=== PATIENT | female | born 1940 | race Caucasian/White ===

== ENCOUNTER → 2016-10-25 | Outpatient (CLI) | payer MEDICARE, OTHER | LOC: GMAB 11:16 | PROVIDERS: ATTEND Family Medicine | DX: G50.0 Trigeminal neuralgia (principal); Z79.899 Other long term (current) drug therapy ==

== ENCOUNTER → 2016-11-09 | Outpatient (CLI) | payer MEDICARE, OTHER ==
--- NOTE | 2016-11-09 15:51 | MAM ---
EXAM DESCRIPTION: MAMMO BREAST SCREENING BILATERAL CAD, images were reviewed with CAD technology, R2 computer-aided detection. CLINICAL HISTORY: [facility]. COMPARISON: 2012. FINDINGS: Routine views are obtained. Scattered glandular pattern. No dominant mass, architectural distortion or clustered microcalcification.. IMPRESSION: Benign exam. BIRAD CATEGORY: 2 BENIGN RECOMMENDATIONS: FOLLOW-UP: Routine screening mammogram in one year. According to the [employer], yearly mammograms are recommended starting at age 40 and continuing as long as a woman is in good health. Any breast change noted on a breast self-exam should be reported promptly to the patient's healthcare provider. Breast MRI is recommended for women with an approximately 20-25% or greater lifetime risk of breast cancer, including women with a strong family history of breast or ovarian cancer and women who have been treated for Hodgkin's disease. Electronically signed by: Hui Alvarez 11/09/2016 15:49
== END ==
LOC: MAMMO 08:26
PROVIDERS: ATTEND Family Medicine
DX: Z12.31 Encounter for screening mammogram for malignant neoplasm of breast (principal)
CPT/HCPCS: 77052; G0202

== ENCOUNTER → 2017-05-12 | Outpatient (CLI) | payer MEDICARE, OTHER ==
--- NOTE | 2017-05-15 09:19 | US ---
EXAM DESCRIPTION: Renal Arteries CLINICAL HISTORY: 76 years, Female, ESSENTIAL HYPERTENSION COMPARISON: None. TECHNIQUE: Multiple real-time duplex Doppler ultrasound images were obtained of the renal arteries. FINDINGS: The aorta demonstrates a velocity of 1.7 cm/s. The proximal right renal artery is 112, mid 77, distal 84 cm/s. Renal artery peak velocity to aorta ratio is 1.4 . Left renal artery proximally is 62 cm second., 72 to midportion, 63 distal and the ratio is 0.9. Waveforms definite no evidence of tardus parvus. IMPRESSION: No ultrasound evidence of renal artery stenosis. Electronically signed by: Harjeet Penn MD 05/15/2017 9:18 AM CDT
== END | disposition home or self-care (01) ==
LOC: US 09:01
PROVIDERS: ATTEND Family Medicine
DX: I10 Essential (primary) hypertension (principal)

== ENCOUNTER → 2017-06-17 | Outpatient (CLI) | payer MEDICARE, BC | END | disposition home or self-care (01) | LOC: LAB.O 06-12 14:59 | PROVIDERS: ATTEND Internal Medicine Nephrology | DX: I10 Essential (primary) hypertension (principal) ==

== ENCOUNTER 2017-06-23 10:28 | Inpatient (IN) | payer MEDICARE, BC ==
--- NOTE | 2017-06-23 11:01 | ED.PDOC ---
History of Present Illness - General Chief Complaint: Neuro Symptoms/Deficits Stated Complaint: recent falls Time Seen by Provider: 06/23/17 10:40 Source: patient, RN notes reviewed, Vital Signs reviewed, family - & daughter, old records - Labs done 06/17/17 show hyponatremia and hypokalemia - will recheck today Exam Limitations: no limitations - History of Present Illness Initial Comments: Patient presents to the ER for evaluation of a recent fall. Patient fell 2 days ago injuring the R side of her face and head. She saw her Neurologist yesterday who ordered and MRI of her brain and C-spine. This is scheduled for Monday. Last night she had one episode of nausea with vomiting and family got concerned. She has a history of a subdural hematoma requiring surgery in the past. Her PCP sent her in to get the MRI today instead of waiting until tomorrow. Patient has no current complaints. Reports she had a thorough evaluation by her Neurologist. Patient reports fall was from a mis-step. No LOC. Timing/Duration: 24 hours Severity: moderate Improving Factors: nothing Worsening Factors: nothing Associated Symptoms: nausea/vomiting Allergies/Adverse Reactions: Allergies Penicillins Allergy (Verified 07/26/16 11:21) Home Medications: Ambulatory Orders Atenolol 100 mg PO DAILY 06/23/17 Atorvastatin Calcium [Lipitor] 20 mg PO DAILY 06/23/17 Carbamazepine [Tegretol-Xr] 300 mg PO TID 06/23/17 Clopidogrel Bisulfate [Plavix] 75 mg PO QD 06/23/17 Diltiazem HCl [Diltiazem HCl ER] 240 mg PO DAILY 06/23/17 Hydrochlorothiazide 25 mg PO DAILY 06/23/17 Nitroglycerin [Nitrostat] 1 ea SL PRN 06/23/17 Omeprazole Magnesium [Prilosec Otc] 20 mg PO DAILY 06/23/17 Valsartan [Diovan] 320 mg PO DAILY 06/23/17 diphenhydrAMINE HCL [Benadryl] 25 mg PO PRN 06/23/17 Review of Systems - Review of Systems Constitutional: States: no symptoms reported EENTM: States: no symptoms reported Respiratory: States: no symptoms reported Cardiology: States: no symptoms reported Gastrointestinal/Abdominal: States: nausea, vomiting - X1. Denies: abdominal pain Musculoskeletal: States: no symptoms reported Skin: States: change in color - Multiple bruises from fall Neurological: States: no symptoms reported All other Systems: No Change from Baseline Past Medical History (General) - Patient Medical History Hx Seizures: No Hx Stroke: Yes - TIA Hx Dementia: No Hx Asthma: No Hx of COPD: No Hx Cardiac Disorders: Yes - [place] x1 Hx Congestive Heart Failure: No Hx Pacemaker: No Hx Hypertension: Yes Hx Thyroid Disease: No Hx Diabetes: No Hx Renal Disease: No Hx Cancer: No Hx of HIV: No Hx Hepatitis C: No Hx MRSA: Yes - Head 2010 MRSA Source:: Wound - Vaccination History Hx Tetanus, Diphtheria Vaccination: Yes Hx Influenza Vaccination: Yes Hx Pneumococcal Vaccination: Yes - Social History Hx Tobacco Use: No Hx Alcohol Use: No Hx Substance Use: No Hx Substance Use Treatment: No Hx Depression: No - Female History Patient : No Family Medical History - Family History Mother Family History: No Known Physical Exam - Physical Exam General Appearance: Alert, Comfortable, No apparent distress, Well Developed, Well Groomed, Well Hydrated, Well Nourished Eye Exam: bilateral normal ENT Exam: hearing grossly normal, pharynx normal, other - Bruising around R eye Neck: non-tender, supple, normal inspection Respiratory: lungs clear, normal breath sounds, no respiratory distress, no accessory muscle use Cardiovascular/Chest: regular rate, rhythm, no edema, no gallop, no JVD, no murmur Extremities Exam: non-tender, normal range of motion 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 Borja who agreed to admission. - Results/Orders Results/Orders: Laboratory Tests 06/23/17 11:25 Sodium 119 L* Potassium 2.4 L* Chloride 82 L Carbon Dioxide 24 Anion Gap 15.4 BUN 7 Creatinine 0.53 L BUN/Creatinine Ratio 13.2 Random Glucose 128 H Serum Osmolality 238.1 L* Calcium 9.0 Total Bilirubin 0.7 AST 27 ALT 17 Alkaline Phosphatase 58 Serum Total Protein 7.0 Albumin 4.2 Globulin 2.8 Albumin/Globulin Ratio 1.5 - EKG/XRAY/CT Xray Comments: MRI: Brain - no acute findings, C-spine - DDD per Radiologist Departure - Departure Clinical Impression: Hyponatremia, Hypokalemia, Hypochloremia Accidental fall Qualifiers: Encounter type: initial encounter Qualified Code(s): W19.XXXA - Unspecified fall, initial encounter Time of Disposition: 12:22 Disposition: Admit Patient Home Medications: Ambulatory Orders Atenolol 100 mg PO DAILY 06/23/17 Atorvastatin Calcium [Lipitor] 20 mg PO DAILY 06/23/17 Carbamazepine [Tegretol-Xr] 300 mg PO TID 06/23/17 Clopidogrel Bisulfate [Plavix] 75 mg PO QD 06/23/17 Diltiazem HCl [Diltiazem HCl ER] 240 mg PO DAILY 06/23/17 Hydrochlorothiazide 25 mg PO DAILY 06/23/17 Nitroglycerin [Nitrostat] 1 ea SL PRN 06/23/17 Omeprazole Magnesium [Prilosec Otc] 20 mg PO DAILY 06/23/17 Valsartan [Diovan] 320 mg PO DAILY 06/23/17 diphenhydrAMINE HCL [Benadryl] 25 mg PO PRN 06/23/17 Decision To Admit - Decistion To Admit Decision to Admit Reason: Admit from ER Decision to Admit Date: 06/23/17 Decision to Admit Time: 12:21
--- NOTE | 2017-06-23 12:28 | HP ---
HISTORY OF PRESENT ILLNESS: This 76 year-old white female is admitted to the hospital via the Emergency Room. She has had a problem with recurring falls over the last 2 weeks on at least 3 occasions. No significant injury except she did fall and has a black eye on the right side [place] her [place]. She also fell on Monday evening before that. She feels she did not trip, she just fell having either lost her balance or her strength. She is otherwise awake and alert. No seizure disorder. No syncope. It is of note that she has had significant hypertension recently and was referred to Dr. Keller, child development director, to be seen this next Monday, which is June 28 in the clinic. He ordered some lab studies which were drawn last Monday, which was June 17 and resulted in a sodium of 125 and potassium low at 2.9. These were reexamined today with the sodium dropping to 119 and potassium to 2.4. It is of note that she is taking Hydrochlorothiazide as well as other blood pressure medications. No previous history of similar episodes of low electrolytes in the past. Her past history is positive in that she may have struck her head back in 2008 and began to notice severe headaches at which time a CT scan was performed showing a subdural hematoma. This was observed conservatively for about 3 weeks until it got worse to the point that she was losing consciousness requiring neurosurgical intervention with bilateral shunts and drainage. She has been followed by Dr. Martinez at [facility], neurologist. She last saw him yesterday, the day before her current admission. She also follows closely with Dr. Clark, her primary care physician. The patient is admitted to the hospital because of the symptomatic hyponatremia and hypokalemic states. PAST MEDICAL HISTORY: 1. Subdural hematoma in 2008 requiring neurosurgical intervention. 2. Coronary artery disease with a myocardial infarction in 1999. 3. History of hypertension with some difficulty in controlling and a recent renal artery ultrasound showing no abnormalities. 4. Thyroid enlargement with thyroid nodules being followed by a surgeon in [place], the largest nodule being 2.7 cm in size. She has had biopsies twice. PAST SURGICAL HISTORY: 1. Thyroid nodule biopsies. 2. Head janette holes for drainage of a subdural hematoma in 2008. CURRENT MEDICATIONS: Please refer to nurses' notes for a verified list of home medications. ALLERGIES: PENICILLIN. FAMILY HISTORY: Positive for coronary artery disease with her father dying of a heart attack in his 50s and Parkinsonism in the family. 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 She has never smoked. REVIEW OF SYSTEMS: A 20 pound weight loss in the last 6 months. No significant fever or chills. HEENT: She has had cataract surgeries in the past. Hearing is good. She does have a dry cough. No hemoptysis or sputum produced. CARDIOVASCULAR: No significant palpitations or chest pains recently. She has a history of a myocardial infarction in the past. ABDOMEN: Appetite is fairly good. No nausea, vomiting, diarrhea or blood in the stools. GENITOURINARY: No dysuria. NEUROLOGIC: She is having difficulty walking and has fallen 3 times in the last 2 weeks. She does not know why she falls. History of subdural hematoma requiring neurosurgical intervention currently cleared with an MRI of the brain performed earlier today and of the neck as well. PHYSICAL EXAMINATION: VITAL SIGNS: Afebrile, pulse 90, blood pressure 170/76, pulse oximetry 97% on room air. GENERAL: HEENT: Bilateral cataract removal noted. The patient is awake, alert and oriented, and communicative. NECK: Supple. No significant carotid bruits are noted. Slight enlargement of the thyroid and is currently being followed for thyroid nodules by a surgeon in [place]. CHEST: Generally clear to auscultation. Occasional dry cough. CARDIOVASCULAR: Heart tones are fairly regular. ABDOMEN: Soft with no organomegaly, masses or tenderness. Bowel tones are present. EXTREMITIES: Good muscle tone. Good range of motion. No significant pedal edema. NEUROLOGIC: The patient is awake, alert and oriented, and communicative. No focal neurological deficits are noted at this time. We are awaiting until her electrolytes are more improved before ambulating her by tomorrow with PT evaluation in progress. LABORATORY STUDIES: White count 4,300 as of about a week ago, hemoglobin 12.7 to be repeated in the morning. Chemistries show sodium dropping in the last 6 days from 125 to 119, potassium from 2.9 to 2.4, BUN is normal at 7, creatinine 0.53, glucose 128, osmolality has dropped from 251 to 238 with the patient admitting to drinking approximately 3/4 to 1 gallon of water a day. Liver enzymes are normal. Cardiac enzymes are pending. Brain MRI fails to show any significant acute infarct, hemorrhage or mass with some micro ischemic changes noted. Cervical spine shows fairly wide spread degenerative disc disease, especially prominent at C5-C6. EKG shows wide spread ST segment depression with inverted T waves with no previous EKGs available for comparison suggesting underlying ischemic coronary disease with specialized followup to continue. Will try to get an EKG from the clinic for comparison since none is in our chart. ASSESSMENT: 1. Severe symptomatic hyponatremia probably secondary to polydipsia associated with Hydrochlorothiazide administration. 2. Significant hypokalemia requiring supplementation and close followup. 3. Recurring falls with injury to the fact possibly secondary to the hyponatremic state. 4. Dystaxia probably contributed to by the hyponatremia. 5. History of a subdural hematoma requiring neurosurgical intervention in 2008. 6. History of coronary artery disease with a myocardial infarction in 1999. 7. Enlarged thyroid gland with multiple nodules, the largest being 2.7 cm being followed closely by a surgeon in [place]. 8. Chronic cervical spine degenerative disc disease especially involving C5- C6. 9. Chronic dry cough, undetermined etiology. No Kartik inhibitors at this time. 10. History of polydipsia contributing to diluted blood with free water overload. 11. Abnormal EKG suggesting underlying ischemic disease with followup necessary. PLAN: The patient is admitted to the hospital for hypertonic saline, the use of a loop diuretic, specific fluid restrictions to 1000 or less mL per day. Repeat lab. Do a chest x-ray since one has not been noted in the record as well as repeat EKG and cardiac enzymes in the morning. Close observation and supportive care necessary. Close followup with Dr. Clark upon discharge and with Dr. Keller this next Monday, and with the neurology specialist this next Monday. #[id number] [facility] CENTERJazmín
--- NOTE | 2017-06-23 12:37 | MRI ---
EXAM DESCRIPTION: Brain w/oContrast CLINICAL HISTORY: 76 years, Female, frequent falls COMPARISON: FINDINGS: Triplanar sequences. Diffusion weighted sequence does not show acute infarct. Gradient sequence does not show hemorrhage. Extensive microischemic changes in the periventricular white matter. Some mild ethmoid sinus mucosal thickening. IMPRESSION: No findings of acute infarct hemorrhage or mass. Moderate atrophy and microischemic changes. Electronically signed by: Tim Zamarripa MD 06/23/2017 12:36 PM CDT
--- NOTE | 2017-06-23 12:38 | MRI ---
Study: MRI of the Cervical Spine. Indication: frequent falls Technique: Multiplanar, multi sequence MRI of the cervical spine was obtained without intravenous contrast. Comparison: None FINDINGS: Vertebral body height maintained. Straightening cervical spine. No marrow infiltrating lesion. Spinal cord normal in caliber and signal. Mild to moderate loss disc space height and hydration throughout cervical spine and most pronounced at C6-C7. Marked enlarged thyroid gland with numerous nodules. The largest on the right measures up to 2.7 cm. C2-C3: No stenosis C3-C4: Trace retrolisthesis. 2 mm disc bulge. Mild spinal canal narrowing. Mild bilateral facet arthrosis and moderate bilateral uncovertebral hypertrophy. Moderate bilateral neural foraminal narrowing. C4-C5: 2 mm disc bulge. Mild to moderate spinal canal narrowing. Mild bilateral facet arthrosis. Moderate left and mild right uncovertebral hypertrophy. Moderate left and mild right uncovertebral hypertrophy. Moderate to severe left and mild right neural foraminal narrowing. C5-C6: Trace anterolisthesis. 3 mm disc osteophyte complex with mild to moderate spinal canal narrowing. Mild bilateral facet arthrosis. Prominent left and mild right uncovertebral hypertrophy. Severe left and mild to moderate right neural foraminal narrowing. C6-C7: 2 mm disc bulge with mild spinal canal narrowing. Mild bilateral uncovertebral hypertrophy and mild/moderate bilateral neural foraminal narrowing. C7-T1: Unremarkable. IMPRESSION: Multilevel cervical disc disease most pronounced at C5-C6 as detailed above. Enlarged heterogeneous thyroid gland with large nodules which meet criteria for workup with ultrasound evaluation. Electronically signed by: Eze Zamora MD 06/23/2017 12:36 PM CDT
[2017-06-23] MEDS ORDERED: carBAMazepine 200 MG TAB PO ONE (12:40)
[2017-06-23] MEDS ORDERED: SODIUM CHLORIDE 0.9% (FLUSH) 10 ML SYG IV PRN (14:33)
[2017-06-23] MEDS ORDERED: KCL 40MEQ/NS 1,000 ML IVS PRN (14:38)
[2017-06-23] MEDS ORDERED: MAGNESIUM HYDROXIDE 30 ML UD PO PRN (14:38)
[2017-06-23] MEDS ORDERED: HYDROcodone 5MG/APAP 325MG 1 EA TAB PO PRN (14:38)
[2017-06-23] MEDS ORDERED: SOD CHL 3% *HYPERTONIC* 500ML 300 ML IVS ONE (14:53)
[2017-06-23] MEDS ORDERED: BENZONATATE PERLES 100 MG CAP PO PRN (14:53)
[2017-06-23] MEDS: CARBAMAZEPINE 300 MG PO SCH ×2 (14:57→20:01)
[2017-06-23] MEDS ORDERED: diphenhydrAMINE HCL 25 MG CAP PO SCH (15:00)
[2017-06-23] MEDS ORDERED: CLOPIDOGREL BISULFATE 75 MG PO SCH (15:00)
[2017-06-23] MEDS ORDERED: IV SET AND CAP CHANGE INJ INJ SCH (15:00)
[2017-06-23] MEDS ORDERED: NITROGLYCERIN 0.4 MG 25 EA TAB SL SCH (15:00)
[2017-06-23] MEDS ORDERED: KCL 40 MEQ/WATER FOR INJECTION 40 MEQ in PREMIX BAG 1 BAG IVPB ONE (15:01)
[2017-06-23] MEDS: FUROSEMIDE INJ 20 MG/2 ML VIAL IV SCH (15:24)
[2017-06-23] MEDS ORDERED: KCL 40 MEQ/WATER FOR INJECTION 100 ML IVPB ONE (15:29)
[2017-06-23] MEDS ORDERED: POTASSIUM CHLORIDE 10 MEQ TAB PO SCH (15:30)
[2017-06-23] MEDS: OMEPRAZOLE CAP 20 MG CAP PO SCH (15:50)
[2017-06-23] MEDS: POTASSIUM CHLORIDE 10 MEQ TAB PO SCH ×2 (16:15→20:03)
--- NOTE | 2017-06-24 07:04 | PCM.CORE ---
Physician DVT/VTE - Nurse DVT Assessment & Total Each Risk Factor Represents 3 Points: Age over 75 years, Hx of DVT/PE, Medical PT with Hx of OR, CHF, Severe infection/sepsis DVT Assessment Score: 9 - 5 or more Very High Risk Treatments: Sequential Compression Device
[2017-06-24] MEDS ORDERED: ATENOLOL 25 MG TAB ONE (07:05)
[2017-06-24] MEDS ORDERED: CLOPIDOGREL 75 MG TAB ONE (07:06)
[2017-06-24] MEDS ORDERED: VALSARTAN 80 MG TAB ONE (07:06)
[2017-06-24] MEDS: CARBAMAZEPINE 300 MG PO SCH ×3 (07:12→18:40)
--- NOTE | 2017-06-24 07:13 | RAD ---
EXAM: Two view chest. INDICATION: Hyponatremia. COMPARISON: Chest x-ray: None. FINDINGS: Cardiac silhouette: Unremarkable. Zaina: Unremarkable. Lobar consolidation: None. Pleural effusion: None. Pneumothorax: None. Other: None. Bones: Unremarkable. Other: None. IMPRESSION: 1. No acute cardiopulmonary process. Electronically signed by: Jed Conde MD 06/24/2017 7:12 AM CDT Workstation: [id number]
[2017-06-24] MEDS: POTASSIUM CHLORIDE 10 MEQ TAB PO SCH ×3 (08:58→21:01)
[2017-06-24] MEDS: CLOPIDOGREL 75 MG TAB PO SCH (08:58)
[2017-06-24] MEDS: OMEPRAZOLE CAP 20 MG CAP PO SCH (08:58)
[2017-06-24] MEDS: ATENOLOL 25 MG TAB PO SCH (08:58)
[2017-06-24] MEDS: VALSARTAN 80 MG TAB PO SCH (08:58)
[2017-06-24] MEDS: FUROSEMIDE INJ 20 MG/2 ML VIAL IV SCH (08:58)
[2017-06-24] MEDS: SODIUM CHLORIDE 0.9% (FLUSH) 10 ML SYG IV SCH ×2 (09:51→21:01)
[2017-06-25] MEDS: CARBAMAZEPINE 300 MG PO SCH (07:06)
[2017-06-25] MEDS: ATENOLOL 25 MG TAB PO SCH (08:29)
[2017-06-25] MEDS: CLOPIDOGREL 75 MG TAB PO SCH (08:29)
[2017-06-25] MEDS: POTASSIUM CHLORIDE 10 MEQ TAB PO SCH (08:29)
[2017-06-25] MEDS: VALSARTAN 80 MG TAB PO SCH (08:29)
[2017-06-25] MEDS: SODIUM CHLORIDE 0.9% (FLUSH) 10 ML SYG IV SCH (08:33)
[2017-06-25] MEDS: OMEPRAZOLE CAP 20 MG CAP PO SCH (09:09)
[2017-06-25 10:06] VITALS: BP 129/74; TEMP 97.9; O2SAT 97
--- NOTE | 2017-06-28 16:24 | DS ---
SUPERVISING PHYSICIAN: Tello Thomas M.D. DISCHARGE DIAGNOSIS: 1. Symptomatic hyponatremia secondary to polydipsia associated with Hydrochlorothiazide administration showing improvement after IV fluids and fluid restrictions. 2. Significant hypokalemia, improving after IV therapy. 3. Recurrent multiple falls felt to be secondary to the hyponatremic state. 4. Dystaxia probably contributed to by the hyponatremia. 5. History of a subdural hematoma in the past requiring neurosurgical intervention in 2008. 6. History of coronary artery disease with a myocardial infarction in 1999. 7. Enlarged thyroid gland with multiple nodules, the largest being 2.7 cm being followed closely by a surgeon in [place]. 8. Chronic cervical disc disease especially involving C5-C6. 9. Chronic dry cough, undetermined etiology. With no Kartik inhibitors noted. 10. History of polydipsia contributing to diluted blood with free water overload. 11. Abnormal EKG suggesting underlying ischemic disease. Need close followup. HISTORY OF PRESENT ILLNESS: Ms. Bhatt is a 76 year-old female patient who is admitted to the hospital via the Emergency Room. She has had a problem with recurring falls over the last 2 weeks on at least 3 occasions. No significant injuries noted except she had a fall and has a black eye on the right side when [place] 2 [place] to her admission. She also fell on Monday evening before that. She feels that she did not trip, she just fell after she had lost her balance and no strength. She otherwise was alert and oriented. No seizure disorder. No syncope. Of note was that she had significant hypertension recently and was referred to Dr. Keller, onion topper, to be seen on the Monday after discharge, which would be June 28 in the clinic. He ordered some lab studies which had been drawn the past Monday and on June 17 resulted in a sodium of 125, potassium 2.9. Those results were reexamined on admission with sodium dropping to 119 and potassium to 2.4. It is of note that she is taking Hydrochlorothiazide as well as other blood pressure medications. No previous history of other episodes of low electrolytes in the past. Her history is positive in that she may have struck in the head back in 2008 and began to notice severe headaches at which time a CT scan was performed showing a subdural hematoma. This was observed conservatively for about 3 weeks until it got worse to the point that she was losing consciousness requiring neurosurgical intervention with bilateral shunts and drainage. She has been followed by Dr. Martinez at [facility], neurologist. She last saw him the day before her current admission. She is also followed closely by Dr. Clark. The patient was admitted to the hospital for secondary symptomatic symptoms for hyponatremia and hypokalemic states. She was admitted in stable condition. LABORATORY STUDIES: Initially on admission showed 4.9 white count with hemoglobin 11.5, hematocrit 32.0, platelet count 272,000. Differential was within normal limits. Chemistries showed sodium 119 improved after IV fluids, at discharge was 132. Potassium was low at 2.4 but normalized to 3.9. All other electrolytes were within normal limits at documentation. BUN was 7, creatinine 0.53 on admission and at discharge was 6 and less than 0.4. Calcium was 9.0 at discharge. Liver functions showed to be within normal limits. BNP was slightly elevated at 117. She had 2 troponins, one being 0.05, one being 0.03. Urinalysis showed just 100 of glucose, 40 of ketones with a trace of blood, otherwise within normal limits. No microbiology specimens were submitted. RADIOLOGY: She had a brain MRI and cervical MRI. The findings on the MRI per radiology interpretation of the brain showed no findings of acute infarct, hemorrhage or masses. Moderate atrophy and micro ischemic changes were noted. MRI of the cervical spine per radiology interpretation showed multilevel cervical disc disease most prominent at C5-C6. There was a large heterogeneous thyroid gland with large nodules which meet criteria for workup with ultrasound evaluation. Please see that final report for full details. Chest x-ray on date of admission per radiology interpretation showed no acute cardiopulmonary disease as well as she had EKG that showed normal sinus rhythm with some questionable ST changes in the inferior and anterolateral leads. No comparisons were available. The patient was without any chest pains and troponins all were within normal limits. HOSPITAL COURSE: Ms. Bhatt was admitted as noted above for replacement of sodium and fluid restrictions. She did have good clinical improvement of her electrolytes. Had no chest pains. No syncopal episodes and was able to ambulate without any difficulty. It was felt that she was clinically stable enough to be discharged to have close clinical followup in the outpatient setting. PLAN: Ms. Bhatt was discharged on 06/24/17 with instructions to have close clinical followup with Dr. Clark and Dr. Keller as scheduled. She will resume her home medications as instructed and to hold Hydrochlorothiazide until she was seen in followup. She is to restrict her total fluids in 24 hours to less than 1800 and to return to the hospital should she have any concerning symptoms. No new prescriptions were provided at discharge. The only modification was that she was told to hold her Hydrochlorothiazide. She will also need followup in regards to the thyroid findings for an ultrasound if not already seen and followed-up as noted on MRI findings of the neck. Please see those reports for full details. Diet at discharge was a normal diet as tolerated. Activity is as tolerated. Limit driving until she is seen in followup. She may return to work as tolerated. Condition on discharge was stable and improved. [facility][id number] [facility]
== END 2017-06-25 10:47 | disposition home or self-care (01) | DRG 641 ==
LOC: ER 10:28 → MS 12:26
PROVIDERS: ADMIT Emergency Medicine; ATTEND Nurse Practitioner Family
DX: E87.1 Hypo-osmolality and hyponatremia (principal); R63.1 Polydipsia; E87.6 Hypokalemia; E87.8 Other disorders of electrolyte and fluid balance, not elsewhere classified; R29.6 Repeated falls; R26.0 Ataxic gait; R94.31 Abnormal electrocardiogram [ECG] [EKG]; I10 Essential (primary) hypertension; I25.10 Atherosclerotic heart disease of native coronary artery without angina pectoris; I25.2 Old myocardial infarction; E04.2 Nontoxic multinodular goiter; M50.322 Other cervical disc degeneration at C5-C6 level; R05 Cough; T50.2X5A Adverse effect of carbonic-anhydrase inhibitors, benzothiadiazides and other diuretics, initial encounter; Y92.009 Unspecified place in unspecified non-institutional (private) residence as the place of occurrence of the external cause; Z88.0 Allergy status to penicillin; Z87.898 Personal history of other specified conditions; Z79.899 Other long term (current) drug therapy; Z86.73 Personal history of transient ischemic attack (TIA), and cerebral infarction without residual deficits

== ENCOUNTER → 2017-07-12 | Outpatient (CLI) | payer MEDICARE, BC | LOC: MRI 13:30 | PROVIDERS: ATTEND Internal Medicine Nephrology | DX: N18.4 Chronic kidney disease, stage 4 (severe) (principal); E03.9 Hypothyroidism, unspecified ==

== ENCOUNTER → 2017-11-23 | Outpatient (CLI) | payer MEDICARE, BC ==
--- NOTE | 2017-11-28 11:42 | MAM ---
EXAM DESCRIPTION: 3D Screening BILATERAL : Digital Mammography. CLINICAL HISTORY: 77 years Female SCREENING . No complaints. No family history breast cancer. Postmenopausal. No HRT. COMPARISON: 2-D digital screening bilateral studies on 11/09/2016 and 10/06/2015. Report from prior examination also reviewed. TECHNIQUE: Bilateral CC and MLO projection full-field images, 3-D tomosynthesis digital mammographic technique. Also bilateral synthesized CC/ MLO full-field images. CAD not utilized. FINDINGS: The breast parenchymal density pattern is: Scattered areas of fibroglandular density. No skin thickening or nipple retraction No focal, stellate mass or density, focal asymmetry , and no suspicious microcalcifications bilaterally. Stable mammograms compared to prior studies, taking into account differences in mammographic technique. IMPRESSION: BI-RADS CATEGORY: 1 - NEGATIVE FOLLOW UP: Routine digital bilateral screening, one year interval from November 2017. Written communication explaining the findings and follow-up, will be mailed to the patient and referring health care provider. According to the [employer], yearly mammograms are recommended starting at age 40 and continuing as long as a woman is in good health. Any breast change noted on a breast self-exam should be reported promptly to the patient's healthcare provider. Breast MRI is recommended for women with an approximately 20-25% or greater lifetime risk of breast cancer, including women with a strong family history of breast or ovarian cancer and women who have been treated for Hodgkin's disease. A negative mammographic report should not delay tissue diagnosis in patients with significant clinical history or physical findings. Extremely dense breast tissue limits the sensitivity of digital mammography. Electronically signed by: Yamil Logan MD 11/28/2017 11:42 AM [facility]
== END ==
LOC: MAMMO 08:52
PROVIDERS: ATTEND Family Medicine
DX: Z12.31 Encounter for screening mammogram for malignant neoplasm of breast (principal)

== ENCOUNTER → 2018-03-21 | Outpatient (CLI) | payer MEDICARE | LOC: GMAB 14:59 | PROVIDERS: ATTEND Family Medicine | DX: E83.2 Disorders of zinc metabolism (principal) ==

== ENCOUNTER → 2018-03-26 | Outpatient (CLI) | payer MEDICARE | LOC: GMAB 11:00 | PROVIDERS: ATTEND Family Medicine | DX: I10 Essential (primary) hypertension (principal) ==

== ENCOUNTER 2018-07-23 05:34 | Day surgery (SDC) | payer MEDICARE ==
[2018-07-23] MEDS ORDERED: TROP 1%/CYCLOPEN 1%/PHENYL 2% DROPS ONE (08:42)
[2018-07-23] MEDS ORDERED: TOBRAMYCIN SULF 0.3 % OPHT SOL 1 DROP OPHTH ONE (08:42)
[2018-07-23] MEDS: PROPARACAINE 0.5% OPHTH SOL 15 ML BTTL ONE (11:15)
== END 2018-07-23 11:25 | disposition home or self-care (01) ==
LOC: AMB 05:34
PROVIDERS: ATTEND Ophthalmology
DX: H26.491 Other secondary cataract, right eye (principal); I10 Essential (primary) hypertension; I25.10 Atherosclerotic heart disease of native coronary artery without angina pectoris; Z88.0 Allergy status to penicillin

== ENCOUNTER → 2018-12-04 | Outpatient (CLI) | payer MEDICARE | LOC: GMAE 14:23 | PROVIDERS: ATTEND Family Medicine | DX: R41.9 Unspecified symptoms and signs involving cognitive functions and awareness (principal); R42 Dizziness and giddiness ==

== ENCOUNTER → 2019-01-04 | Outpatient (CLI) | payer MEDICARE ==
--- NOTE | 2019-01-07 15:53 | MAM ---
EXAM DESCRIPTION: 3D Screening BILATERAL : Digital Mammography. CLINICAL HISTORY: 78 years Female SCREENING . No complaints. No personal or family history of breast cancer. Childbirth. Postmenopausal. No HRT.. Lifetime risk of developing breast cancer (Tyrer-Cuzick model)(%): 2.5. COMPARISON: Bilateral screening digital breast tomosynthesis 11/23/2017. TECHNIQUE: Bilateral CC and MLO projection full-field images, digital tomosynthesis mammographic technique. Bilateral digital 2-D full-field MLO images. CAD not available for tomosynthesis or 2-D images. FINDINGS: The breast parenchymal density pattern is: Scattered areas of fibroglandular density. No skin thickening or nipple retraction. No new focal, stellate mass or density, focal asymmetry , and no suspicious microcalcifications bilaterally. Stable mammograms compared to prior study. IMPRESSION: BI-RADS CATEGORY: 1 - NEGATIVE FOLLOW UP: Routine digital bilateral screening, one year interval from December 2018. Written communication explaining the findings and follow-up, will be mailed to the patient and referring health care provider. According to the [employer], yearly mammograms are recommended starting at age 40 and continuing as long as a woman is in good health. Any breast change noted on a breast self-exam should be reported promptly to the patient's healthcare provider. Breast MRI is recommended for women with an approximately 20-25% or greater lifetime risk of breast cancer, including women with a strong family history of breast or ovarian cancer and women who have been treated for Hodgkin's disease. A negative mammographic report should not delay tissue diagnosis in patients with significant clinical history or physical findings. Extremely dense breast tissue limits the sensitivity of digital mammography. Electronically signed by: Yamil Logan MD 01/07/2019 3:50 PM CDT
== END ==
LOC: MAMMO 09:00
PROVIDERS: ATTEND Family Medicine
DX: Z12.31 Encounter for screening mammogram for malignant neoplasm of breast (principal)

== ENCOUNTER → 2019-01-07 | Outpatient (CLI) | payer MEDICARE | LOC: GMAE 11:15 | PROVIDERS: ATTEND Family Medicine | DX: Z79.899 Other long term (current) drug therapy (principal) ==

== ENCOUNTER → 2019-02-07 | Outpatient (CLI) | payer MEDICARE ==
--- NOTE | 2019-02-07 15:40 | RAD ---
EXAM DESCRIPTION: Hand,Right 3 Views CLINICAL HISTORY: S62.306D COMPARISON: None Available. TECHNIQUE: AP, LATERAL, AND OBLIQUE radiographs of the right hand were obtained. FINDINGS: The visualized bones appear poorly mineralized. Comminuted oblique fracture through the midshaft of the fifth metacarpal with associated soft tissue swelling. Degenerative changes are identified in the first carpometacarpal joint, metacarpophalangeal and interphalangeal joints. IMPRESSION: Comminuted oblique fracture through the midshaft of the fifth metacarpal with associated soft tissue swelling. Electronically signed by: Carina Mello MD 02/07/2019 3:38 PM CDT
== END ==
LOC: RAD 08:02
PROVIDERS: ATTEND Orthopaedic Surgery
DX: S62.306D Unspecified fracture of fifth metacarpal bone, right hand, subsequent encounter for fracture with routine healing (principal)

== ENCOUNTER → 2019-04-29 | Outpatient (CLI) | payer MEDICARE | LOC: GMAE 11:32 | PROVIDERS: ATTEND Family Medicine | DX: E04.1 Nontoxic single thyroid nodule (principal); I10 Essential (primary) hypertension; E78.2 Mixed hyperlipidemia ==

== ENCOUNTER → 2020-06-09 | Outpatient (CLI) | payer MEDICARE | END | disposition home or self-care (01) | LOC: GMAE 10:48 | PROVIDERS: ATTEND Family Medicine | DX: I10 Essential (primary) hypertension (principal) ==